=== PATIENT | female | born 2000 | race Caucasian/White ===

== ENCOUNTER 2018-06-16 11:49 | Outpatient (CLI) | END 2018-06-16 14:30 | disposition home or self-care (01) ==

== ENCOUNTER 2018-06-19 12:24 | Inpatient (IN) | END 2018-06-24 18:21 | disposition home or self-care (01) | DRG 775 ==

== ENCOUNTER 2019-08-16 15:41 | Emergency (ER) | payer MEDICAID ==
[~2019-08-16] VITALS: Ht 157.5 cm; Wt 80.0 kg
[~2019-08-16 15:41] MED LIST: PNV11TAB PO
[2019-08-16 15:45] VITALS: BP 128/59; PULSE 71; RESP 18; Ht 157.5 cm; Wt 80.0 kg
== END 2019-08-16 19:15 | disposition home or self-care (01) ==
LOC: FTE 15:41
DX: O20.9 Hemorrhage in early pregnancy, unspecified (principal); R10.2 Pelvic and perineal pain; Z3A.11 11 weeks gestation of pregnancy
CPT/HCPCS: 36415; 76801; 81001; 84702; 85025; 86900; 86901